=== PATIENT | female | born 1955 | race Caucasian/White ===

== ENCOUNTER 2023-05-18 20:15 | Outpatient (CLI) | payer OTHER | END 2023-05-18 23:59 | disposition critical access hospital (66) | LOC: EMS 20:15 | DX: S06.9X9A Unspecified intracranial injury with loss of consciousness of unspecified duration, initial encounter (principal); S00.83XA Contusion of other part of head, initial encounter; W01.198A Fall on same level from slipping, tripping and stumbling with subsequent striking against other object, initial encounter; Y92.007 Garden or yard of unspecified non-institutional (private) residence as the place of occurrence of the external cause ==

== ENCOUNTER 2023-05-18 20:35 | Emergency (ER) | payer OTHER ==
--- NOTE | 2023-05-18 20:40 | ED Physician Documentation ---
PD HPI HEAD INJURY - Stated complaint Stated Complaint: GLF - History obtained from History obtained from: Patient, Family - Additional information Additional information: 68-year-old woman who has CLL which is being managed expectantly had a few drinks tonight and then reportedly fell and hit her head with a laceration on the back of the head and positive loss of consciousness. She has no complaints, she is intoxicated and does not know why she is here. She is up-to-date on tetanus per the [place] vaccine registry having received it in May 2017. PD PAST MEDICAL HISTORY - Present Medications Home Medications: Ambulatory Orders Medication Instructions Recorded Confirmed Citalopram Hydrobromide [Celexa] 20 mg PO DAILY 05/18/23 05/18/23 methIMAzole [Methimazole] 2.5 mg PO DAILY 05/18/23 05/18/23 - Allergies Allergies/Adverse Reactions: Allergies Allergy/AdvReac Type Severity Reaction Status Date / Time oxycodone Allergy Unknown Verified 05/18/23 20:49 morphine AdvReac Nausea Verified 05/18/23 21:42 PD ED PE NORMAL - Vitals Vital signs reviewed: Yes - General General: No acute distress, Other (She is alert and oriented to person but not place, time, nor events) - HEENT HEENT: PERRL, EOMI (With significant nystagmus), Other (Suggestion of a laceration on the occiput incompletely evaluated on initial evaluation due to overlying blood and clot. No active bleeding.) - Neck Neck: No bony TTP (But maintained in a c-collar pending imaging given intoxication) - Cardiac Cardiac: RRR, No murmur - Respiratory Respiratory: No respiratory distress, Clear bilaterally - Abdomen Abdomen: Normal bowel sounds, Soft, Non tender - Derm Derm: Normal color, Warm and dry - Extremities Extremities: No deformity, No tenderness to palpate, Normal ROM s pain, No edema, No calf tenderness / cord - Neuro Eye Opening: Spontaneous Motor: Obeys Commands Verbal: Confused GCS Score: 14 Results - Vitals Vitals: Vital Signs - 24 hr 05/18/23 05/18/23 05/18/23 20:38 21:11 21:30 Temperature 36.5 C Heart Rate 60 79 64 Respiratory 14 20 15 Rate Blood Pressure 139/75 H 124/62 134/96 H O2 Saturation 100 100 98 05/18/23 05/18/2305/18/23 22:00 22:20 22:35 Temperature Heart Rate 82 60 60 Respiratory 21 13 15 Rate Blood Pressure 96/57 L 112/68 101/55 L O2 Saturation 99 98 98 05/18/23 23:00 Temperature Heart Rate 58 L Respiratory 14 Rate Blood Pressure 90/51 L O2 Saturation 96 Oxygen O2 Source Room air - Labs Labs: Laboratory Tests 05/18/23 05/18/23 05/18/23 21:15 22:10 22:10 WBC 15.6 H RBC 4.06 L Hgb 13.1 Hct 38.2 MCV 94.1 MCH 32.3 H MCHC 34.3 RDW 13.8 Plt Count 229 MPV 10.8 Neut # (Auto) Not Reportable Lymph # (Auto) Not Reportable Lee # (Auto) Not Reportable Eos # (Auto) Not Reportable Baso # (Auto) Not Reportable Absolute Nucleated RBC Not Reportable Total Counted 100 Band Neuts % (Manual) 0 Reactive Lymphs % (Man) 22 Abnorm Lymph % (Manual) 0 Nucleated RBC % Not Reportable Neutrophils # (Manual) 7.5 H Lymphocytes # (Manual) 5.9 H Monocytes # (Manual) 1.6 H Eosinophils # (Manual) 0.5 Basophils # (Manual) 0.2 H Differential Comment MANUAL DIFFERENTIAL Platelet Estimate NORMAL (130-450,000) Platelet Morphology NORMAL APPEARANCE RBC Morph Micro Appear NORMAL APPEARANCE PT 11.2 INR 1.0 Sodium 141 Potassium 3.7 Chloride 109 Carbon Dioxide 22 Anion Gap 10.0 BUN 11 Creatinine 0.5 L Estimated GFR (MDRD) 123 Glucose 88 Calcium 9.9 Magnesium 2.0 Total Bilirubin 0.3 AST 40 ALT 42 Alkaline Phosphatase 66 Total Protein 6.9 Albumin 4.1 Globulin 2.8 Albumin/Globulin Ratio 1.5 Ethyl Alcohol 200.2 - Rads (name of study) CT head and cervical spine showing thyroid nodules with calcifications and small volume subarachnoid hemorrhage on the right Relevant Findings:: Final report received, EMP independent interpretation of test Procedures - Laceration (location) Scalp/occiput Length in cm: 1.5 Wound type: Linear, Into subcut fat Anesthesia: Lidocaine 1% with epi Wound preparation: Irrigated copiously NS Skin layer closure: Amena (3) Other: Patient tolerated well, No complications, Neurovascular intact, Tetanus UTD PD Medical Decision Making - ED course Complexity details: reviewed results (CBC showing reactive lymphs and an elevated white count, presume this is chronic from her CLL. INR was normal at 1.0. CMP unremarkable. Blood alcohol 200 consistent with intoxication.) ED course: 68-year-old intoxicated woman had a ground-level fall with posterior head injury. She was seen as a modified trauma and she is altered, mostly seemingly due to intoxication but potentially due to the head injury as well. On my "wet read" of her head CT she does have some mild amount of subarachnoid blood on the right and the images were sent to [facility] for neurosurgical consultation. Her head was cleansed and I was able to visualize about a 1 and half centimeter laceration on the occiput that was closed with amena. It was hemostatic at that time. At 9:47 PM I discussed her case by phone with Dr. Bentley Liriano, neurosurgery at [facility] and we discussed the case. He recommends that as long as her INR is normal, it is pending at this point, we can repeat a head CT 4 hours after the first and if there is no interval change she can be discharged from a neurosurgical perspective. I discussed the thyroid nodules incidentally found with the patient and daughter. She states she knew about this and as already had it worked up. Care to overnight EDMD at 11p pending rpt head CT at 1am. Departure - Departure Clinical Impression: Ground-level fall, Thyroid nodule Traumatic subarachnoid bleed with LOC of 30 minutes or less Qualifiers: Encounter type: initial encounter Qualified Code(s): S06.6X1A - Traumatic subarachnoid hemorrhage with loss of consciousness of 30 minutes or less, initial encounter Alcohol intoxication Qualifiers: Complication of substance-induced condition: with delirium Qualified Code(s): F10.921 - Alcohol use, unspecified with intoxication delirium Condition: Stable Record reviewed to determine appropriate education?: Yes Instructions: ED Concussion, ED Alcohol Intoxication Comments: You have 3 amena in the back of your head, they should be removed in about 7 to 10 days. You can follow-up with your primary care physician or walk-in clinic/urgent care for that. You can wash with soap and water/shampoo and shower as normal, otherwise just keep it clean and dry. Incidentally on the CAT scan of your neck there were some thyroid nodules. You should follow-up with your primary care physician for discussion of this and potential nonemergent ultrasound. We expect she will have some symptoms of concussion including but not limited to dizziness, brain fog, headaches. These should improve with time but should also be monitored by your primary care physician.
[2023-05-18 21:21] LABS: BASOPHILS % (AUTO) 0.6 %; HCT - HEMATOCRIT 38.2 % (37.0-47.0); HGB - HEMOGLOBIN 13.1 g/dL (12.0-16.0); LYMPHOCYTES % (AUTO) 58.4 %; MEAN CORPUSCULAR HEMOGLOBIN 32.3 pg (27.0-31.0); MEAN CORPUSCULAR HGB CONC 34.3 g/dL (32.0-36.0); MEAN CORPUSCULAR VOLUME 94.1 fL (81.0-99.0); MEAN PLATELET VOLUME 10.8 fL (7.9-10.8); MONOCYTES % (AUTO) 5.6 %; NEUTROPHILS % (AUTO) 34.2 %; PLT - PLATELET COUNT 229 10^3/uL (130-450); RED BLOOD COUNT 4.06 10^6/uL (4.20-5.40); RED CELL DISTRIBUTION WIDTH 13.8 % (12.0-15.0); WHITE BLOOD COUNT 15.6 x10^3/uL (4.8-10.8)
[2023-05-18 21:29] LABS: ABNORMAL LYMPHS % (MANUAL) 0 %; BAND NEUTROPHILS % (MANUAL) 0 %
[2023-05-18] MEDS ORDERED: oxyCODONE 5 MG TABLET PO STA (21:29)
--- NOTE | 2023-05-18 21:33 | CT Report ---
PROCEDURE: HEAD WO INDICATIONS: Head injury, intoxicated TECHNIQUE: Noncontrast 4.5 mm thick angled axial sections acquired from the foramen magnum to the vertex. For r adiation dose reduction, the following was used: automated exposure control, adjustment of mA and/or kV according to patient size. COMPARISON: None. FINDINGS: Image quality: There is motion artifact CSF spaces: No herniation. Basal cisterns are patent. Volume: Vascular calcifications. Periventricular white matter disease is commonly seen with chronic m icroangiopathy. Volume loss is present. These findings are mild. Brain: Positive for acute intracranial hemorrhage. A possible small epidural hematoma versus meningio ma is seen along the left frontal convexity. A small amount of right subdural and subarachnoid hemorr juan is seen along the right convexity and right tentorium. Craniofacial structures: Scalp hematoma. Small fluid level seen in the right maxillary sinus. IMPRESSION: Small volume extra-axial hemorrhage along the right convexity and right tentorium. A small extra-axia l density in the left frontal region may represent a tiny epidural hematoma versus calcifying meningi angie. Called to the [facility] ED There is motion artifact. Reviewed by: Joo Bird MD on 05/18/2023 9:32 PM PDT Approved by: Joo Bird MD on 05/18/2023 9:32 PM PDT Station ID: [id number]
--- NOTE | 2023-05-18 21:35 | CT Report ---
PROCEDURE: CERVICAL SPINE WO INDICATIONS: Head injury, intoxicated TECHNIQUE: Noncontrast 3 mm thick sections acquired from the skull base to the T4 level. Sagittal and coronal r eformats were then constructed. For radiation dose reduction, the following was used: automated exp osure control, adjustment of mA and/or kV according to patient size. COMPARISON: None. FINDINGS: Image quality: Good Bones: Mild degenerative changes. No traumatic subluxation or acute vertebral body height loss. Soft tissues: Thyroid nodules with calcifications, particularly on the left. IMPRESSION: Mild degenerative changes, no acute facture or traumatic subluxation. If there is high concern for fu rther derangement, consider MRI evaluation. Thyroid nodules with calcifications, consider correlation with ultrasound [facility] Reviewed by: Joo Bird MD on 05/18/2023 9:34 PM PDT Approved by: Joo Bird MD on 05/18/2023 9:34 PM PDT Station ID: [id number]
[2023-05-18 21:52] LABS: BASOPHILS # (MANUAL) 0.2 10^3/uL (0-0.1); BASOPHILS % (MANUAL) 1 %; EOSINOPHILS # (MANUAL) 0.5 10^3/uL (0-0.7); LYMPHOCYTES # (MANUAL) 5.9 10^3/uL (1.5-3.5); LYMPHOCYTES % (MANUAL) 16 %; MONOCYTES # (MANUAL) 1.6 10^3/uL (0.0-1.0); NEUTROPHILS # (MANUAL) 7.5 10^3/uL (1.5-6.6); REACTIVE LYMPHS % (MANUAL) 22 %
[2023-05-18 21:53] LABS: DIFFERENTIAL COMMENT MANUAL DIFFERENTIAL; PLATELET ESTIMATE, MANUAL NORMAL (130-450,000) (NORMAL); PLATELET MORPHOLOGY NORMAL APPEARANCE (NORMAL); RBC MORPHOLOGY (MULTIPLE) NORMAL APPEARANCE (NORMAL)
[2023-05-18 22:22] LABS: PT - PROTHROMBIN TIME 11.2 secs (9.9-12.6)
[2023-05-18 22:34] LABS: ALBUMIN 4.1 g/dL (3.2-5.5); ALBUMIN/GLOBULIN RATIO 1.5 (1.0-2.2); BILIRUBIN,TOTAL 0.3 mg/dL (0.2-1.0); CALCIUM 9.9 mg/dL (8.5-10.3); CREATININE 0.5 mg/dL (0.6-1.3); ETOH - ETHANOL 200.2 mg/dL; POTASSIUM 3.7 mmol/L (3.5-4.5); TOTAL PROTEIN 6.9 g/dL (6.4-8.9)
--- NOTE | 2023-05-19 01:51 | CT Report ---
PROCEDURE: HEAD WO INDICATIONS: reevaluate SAH on previous CTH TECHNIQUE: Noncontrast 4.5 mm thick angled axial sections acquired from the foramen magnum to the vertex. For r adiation dose reduction, the following was used: automated exposure control, adjustment of mA and/or kV according to patient size. COMPARISON: 05/18/2023 FINDINGS: Image quality: Good CSF spaces: Basal cisterns are patent. Lateral ventricles are symmetric. No herniation. Volume: Vascular calcifications. Periventricular white matter disease is commonly seen with chronic m icroangiopathy. Volume loss is present. These findings are mild to moderate. Brain: Similar volume trace right tentorium extra-axial, mostly subarachnoid hemorrhage. The left frontal convexity hyperdensity has increased, confirming that this is a hemorrhage, appearin g subdural morphology measuring a maximum thickness of 6 to 7 mm, previously about 5 mm. Craniofacial structures: Small volume right maxillary sinus fluid. Scalp injury again seen. IMPRESSION: The left frontal convexity hemorrhage appears subdural in morphology and is slightly increased. Small volume subarachnoid hemorrhage shows interval redistribution mostly along the tentorium. The basal c isterns remain patent. Reviewed by: Joo Bird MD on 05/19/2023 1:50 AM PDT Approved by: Joo Bird MD on 05/19/2023 1:50 AM PDT Station ID: [id number]
--- NOTE | 2023-05-19 03:28 | ED Physician Documentation ---
ED Addendum - Addendum Addendum: 05/19/23 03:23 I received signout/turnover of care on this patient from Dr. Whittaker; please see his note for complete H&P. At the time of turnover of care, the plan is to undertake repeat CTH 4 hours from the initial study. The initial CTH demonstrated a small subarachnoid hemorrhage. Dr. Whittaker spoke with Dr. Liriano (on-call neurosurgeon at [facility]), and repeat 4-hour CTH is the recommended approach. The 4-hour repeat CT head does not show any significant change in the subarachnoid hemorrhage. However, a 5 mm left frontal hyperdensity on the initial CTH, which was thought to be a possible SDH or else a calcifying meningioma, is now larger in size, measuring 6 to 7 mm and with an appearance that is more confidently consistent with SDH. I evaluated the patient. She is AAOx3 and in NAD. She says she feels quite well. She denies having any significant pain/headache. She denies numbness, weakness. She is articulate and answers questions rapidly and appropriately/accurately. At the time of this dictation, I am awaiting reply from the neurosurgeon at [facility]; a page has been placed as of approximately 03:00. I heard back from the [facility] transfer center coordinator; she spoke with the neurosurgeon who could not hold the line due to having to tend to patients, but she relays that Dr. Liriano recommends getting another 4-hour repeat CTH. CTH ordered at 6 AM, results pending at end of my shift and thus care of this patient is turned over to the oncoming ED physician (Dr. Riggs) at end of my shift
[2023-05-19] MEDS ORDERED: ACETAMINOPHEN 325 MG TABLET PO STA ×2 (04:45→09:42)
[2023-05-19] MEDS ORDERED: ONDANSETRON 4 MG/2 ML VIAL IVP STA (05:08)
--- NOTE | 2023-05-19 11:17 | CT Report ---
PROCEDURE: HEAD WO INDICATIONS: recheck on ICH TECHNIQUE: Noncontrast 4.5 mm thick angled axial sections acquired from the foramen magnum to the vertex. For r adiation dose reduction, the following was used: automated exposure control, adjustment of mA and/or kV according to patient size. COMPARISON: Head CT examinations, 05/18/2023, and earlier on 05/19/2023 FINDINGS: Image quality: Excellent. CSF spaces: Basal cisterns are patent. No extra-axial fluid collections. Ventricles are normal in size and shape. Brain: There is again seen intracranial hemorrhage superiorly and on the left. The maximum thickness of this hemorrhage is 6 mm, as measured on coronal imaging, series 5 image 27. A this hemorrhage is not increased from the study performed earlier in the day. There is a minimal potential hemorrhage seen on the right, measuring up to 2 mm in thickness There is a small amount of subarachnoid hemorrhage seen within the right temporal lobe inferiorly, as on series 2 image 17 and on series 5 image 36. This is unchanged compared to the prior. No midline shift. No intracranial masses. Barroso-white matter interface is normal. Skull and face: Calvarium and visualized facial bones are intact, without suspicious lesions. Sinuses: Visualized sinuses and mastoids are clear. IMPRESSION: Stable left frontal subdural hemorrhage, measuring up to 6 mm in thickness. Stable subarachnoid hemorrhage seen within the inferior right temporal lobe. There is potential additional subdural hemorrhage seen on the right, which is felt most likely be art ifactual, related to a normal vein. Note: No significant discrepancy from the preliminary report. Reviewed by: Elvis Betancourt MD on 05/19/2023 10:16 AM LOTTIE Approved by: Elvis Betancourt MD on 05/19/2023 10:16 AM LOTTIE Station ID: [id number]
--- NOTE | 2023-05-19 11:40 | ED Physician Documentation ---
ED Addendum - Addendum Addendum: 05/19/23 11:35 Janine East is a 68-year-old female who has had a fall was seen in the emergency department yesterday evening by Dr. Kuo and diagnosed with a subarachnoid and subdural hematoma. She has had a repeat scan showing stable stability of the bleed and she has had a third scan again showing stability. I have talked to Dr. Liriano at the [facility] who recommends a follow-up CT scan in 4 to 6 weeks with her primary care doctor. He feels will be safe to send the patient home and the scans appear stable on his visualization. I personally visualized the scans and find no progression.
[2023-05-19 11:54] VITALS: BP 117/45; O2SAT 98
== END 2023-05-19 11:46 | disposition home or self-care (01) ==
LOC: ED 20:35
DX: S06.6X1A Traumatic subarachnoid hemorrhage with loss of consciousness of 30 minutes or less, initial encounter (principal); W18.30XA Fall on same level, unspecified, initial encounter; F10.921 Alcohol use, unspecified with intoxication delirium; Y90.7 Blood alcohol level of 200-239 mg/100 ml
CPT/HCPCS: 12001; 36415; 70450; 72125; 80053; 80320; 83735; 85025; 85610; 96374; 99284; A9270